=== PATIENT | male | born 1980 | race Caucasian/White ===

== ENCOUNTER 2017-06-06 14:58 | Inpatient (IN) | payer BC ==
[~2017-06-06] VITALS: Ht 182.9 cm; Wt 157.8 kg
[2017-06-06] MEDS ORDERED: ADDERALL 30 MG30 MG PO (15:19)
[2017-06-06] MEDS ORDERED: CLARITIN-D1 TAB.SR1 PO (15:20)
[2017-06-06] MEDS ORDERED: MUCINEX D1 TAB.SR . PO (15:21)
--- NOTE | 2017-06-06 15:25 | NUR ---
RECIEVED PT TO THE FLOOR AT THIS TIME VIA DIRECT ADMIT. ORIENTED PT TO ROOM AND FLOOR AT THIS TIME. WILL IMPLEMEMNT ORDERS OBTAINED. BED IN LOW POSITION AND CALL LIGHT WITHIN REACH. WILL CONTINUE TO MONITOR.
--- NOTE | 2017-06-06 16:20 | NUR ---
SITED IV AT THIS TIME TO PTS RIGHT HAND. IV FLUSIDS STARTED AND HEALTHCARE CONSULTING MANAGER INITIATED AT THIS TIME.PT TOLERATED WELL. BED IN LOW POSITION AND CALL LIGHT WITHIN REACH. WILL CONTINUE TO MONITOR.
[2017-06-06 16:22] LABS: BASOPHILS 0.2 % (0-2); EOSINOPHILS 1.2 % (0-7); HEMATOCRIT 43.7 % (42.0-54.0); HEMOGLOBIN 15.1 g/dL (13.5-17.5); IMMATURE GRANULOCYTES 0.4 % (0-5); LYMPHOCYTES 15.8 % (15-50); MCH 31.9 pg (26.0-34.0); MCHC 34.6 g/dL (31.0-37.0); MCV 92.4 fL (80.0-100.0); MEAN PLATELET VOLUME 8.8 fL (7.4-10.4); MONOCYTES 6.4 % (2-11); PLATELET COUNT 240 10x3/uL (130-400); RBC 4.73 10x6/uL (4.20-6.10); RDW 13.6 % (11.5-14.5); WBC 15.7 10x3/uL (4.8-10.8)
[2017-06-06 16:33] VITALS: BP 147/83
[2017-06-06 16:42] LABS: ALBUMIN 3.5 g/dL (3.4-5.0); ALKALINE PHOSPHATASE 120 U/L (46-116); ALT (SGPT) 44 U/L (10-68); BILIRUBIN - TOTAL 0.57 mg/dL (0.2-1.3); CALC OSMOLALITY 276 mosm/kg (275-300); CALCIUM 8.8 mg/dL (8.5-10.1); CARBON DIOXIDE 25.6 mmol/L (21.0-32.0); CHLORIDE - SERUM 103 mmol/L (98-107); CREATININE - SERUM 0.8 mg/dL (0.6-1.3); GLUCOSE 123 mg/dL (74-106); SODIUM 139 mmol/L (136-145); UREA NITROGEN 7 mg/dL (7-18); eGFR NON AFRICAN AMERICAN > 90 mL/min (90-120)
[2017-06-06 17:50] VITALS: BP 141/83; Ht 182.9 cm; Wt 157.8 kg
[2017-06-06 20:00] VITALS: BP 153/86
[2017-06-07] VITALS (8 sets, daily range): BP systolic 138–168; BP diastolic 89–97
--- NOTE | 2017-06-07 00:38 | NUR ---
PATIENT SLEEPING ON HIS BACK IN NO APPARENT DISTRESS. BEDRAILS UP x2, BED IN LOWEST LOCK POSITION, CALL LIGHT WITHIN REACH.
--- NOTE | 2017-06-07 01:20 | NUR ---
RESTING QUIETLY, EYES CLOSED. RESP EASY, UNLABORED. DENIES NEEDS. CONTINUE CONTRACTING EXECUTIVE'S PLAN OF CARE.
[2017-06-07 05:41] LABS: BASOPHILS 0.2 % (0-2); EOSINOPHILS 1.1 % (0-7); HEMATOCRIT 41.3 % (42.0-54.0); HEMOGLOBIN 14.2 g/dL (13.5-17.5); IMMATURE GRANULOCYTES 0.3 % (0-5); LYMPHOCYTES 12.3 % (15-50); MCH 31.6 pg (26.0-34.0); MCHC 34.4 g/dL (31.0-37.0); MONOCYTES 10.2 % (2-11); NEUTROPHILS 75.9 % (40-80); PLATELET COUNT 261 10x3/uL (130-400); RBC 4.49 10x6/uL (4.20-6.10); RDW 13.8 % (11.5-14.5); WBC 14.9 10x3/uL (4.8-10.8)
[2017-06-07 05:59] LABS: ALBUMIN 2.9 g/dL (3.4-5.0); ALKALINE PHOSPHATASE 102 U/L (46-116); ALT (SGPT) 34 U/L (10-68); BILIRUBIN - TOTAL 0.61 mg/dL (0.2-1.3); CALC OSMOLALITY 276 mosm/kg (275-300); CALCIUM 8.4 mg/dL (8.5-10.1); CARBON DIOXIDE 26.3 mmol/L (21.0-32.0); CHLORIDE - SERUM 104 mmol/L (98-107); CREATININE - SERUM 0.8 mg/dL (0.6-1.3); GLUCOSE 124 mg/dL (74-106); POTASSIUM - SERUM 3.9 mmol/L (3.5-5.1); PROTEIN - SERUM 6.7 g/dL (6.4-8.2); SODIUM 139 mmol/L (136-145); UREA NITROGEN 8 mg/dL (7-18); eGFR NON AFRICAN AMERICAN > 90 mL/min (90-120)
--- NOTE | 2017-06-07 06:14 | NUR ---
CONSENT FORMS SIGNED AND PLACED IN CHART
--- NOTE | 2017-06-07 07:30 | NUR ---
RECIEVED PT DURING WALKING ROUNDS, PT RESTING IN BED WITH COMPLAINTS OF CRAMPING PAIN IN THE ABDOMEN. ALUMINUM CAN COLLECTOR IN USE. ASSESSMENT DONE PER FLOWSHEET. BED IN LOW POSITION AND CALL LIGHT WITHIN REACH. WILL CONTINUE TO MONITOR.
--- NOTE | 2017-06-07 22:30 | NUR ---
PT IS RESTING QUIET IN BED WITH FAMILY AT THE BEDSIDE. HE HAS A MEAGHAN DRAIN IN THE MIDDLE OF HIS ABD WITH A DRESSING. THE BED IS LOW, RAILS UP X'S 2 WITH CALL LIGHT AT HAND.
[2017-06-08 04:00] VITALS: BP 154/103
[2017-06-08 05:49] LABS: BASOPHILS 0.1 % (0-2); EOSINOPHILS 0.1 % (0-7); HEMATOCRIT 41.7 % (42.0-54.0); HEMOGLOBIN 14.2 g/dL (13.5-17.5); IMMATURE GRANULOCYTES 0.4 % (0-5); LYMPHOCYTES 6.7 % (15-50); MCH 31.6 pg (26.0-34.0); MCHC 34.1 g/dL (31.0-37.0); MCV 92.7 fL (80.0-100.0); MEAN PLATELET VOLUME 9.1 fL (7.4-10.4); MONOCYTES 7.4 % (2-11); NEUTROPHILS 85.3 % (40-80); PLATELET COUNT 262 10x3/uL (130-400); RDW 13.8 % (11.5-14.5)
[2017-06-08 05:54] LABS: WBC 18.9 10x3/uL (4.8-10.8)
[2017-06-08 06:15] LABS: ALBUMIN 2.9 g/dL (3.4-5.0); ALKALINE PHOSPHATASE 104 U/L (46-116); ALT (SGPT) 28 U/L (10-68); BILIRUBIN - TOTAL 0.73 mg/dL (0.2-1.3); CALC OSMOLALITY 278 mosm/kg (275-300); CALCIUM 8.4 mg/dL (8.5-10.1); CHLORIDE - SERUM 103 mmol/L (98-107); CREATININE - SERUM 0.9 mg/dL (0.6-1.3); GLUCOSE 169 mg/dL (74-106); POTASSIUM - SERUM 4.4 mmol/L (3.5-5.1); PROTEIN - SERUM 7.2 g/dL (6.4-8.2); SODIUM 138 mmol/L (136-145); UREA NITROGEN 9 mg/dL (7-18); eGFR NON AFRICAN AMERICAN > 90 mL/min (90-120)
--- NOTE | 2017-06-08 07:15 | NUR ---
REPORT RECEIVED FROM TEAM PHYSICIAN NURSE. AMBULATING IN HALLWAY ADLIB. TOLERATING.
[2017-06-08 08:23] VITALS: BP 147/82
--- NOTE | 2017-06-08 08:28 | NUR ---
ASSESSMENT COMPLETED. AM MEDS ADMINISTERED. CARE PLAN REVIEWED. PASSWORD OBTAINED AND PUT IN COMPUTER. REFUSES SCDs. URINAL GIVEN TO PATIENT TO MONITOR URINE OUTPUT. EATING REGULAR BREAKFAST TRAY THAT WAS ORDERED. HAS AMBULATED IN HALLWAYS OVER 2000 FEET. CALL LIGHT IN REACH. WILL CONTINUE WITH PLAN OF CARE.
--- NOTE | 2017-06-08 10:20 | NUR ---
AMBULATING IN HALLWAY AGAIN. NO DISTRESS NOTED AT THIS TIME. CALL LIGHT IN REACH.
[2017-06-08 12:01] VITALS: BP 132/76
--- NOTE | 2017-06-08 12:08 | NUR ---
ADDERALL 30 MG PO PER ORDER. CALL LIGHT IN REACH.
--- NOTE | 2017-06-08 14:20 | NUR ---
CARLOS ALBERTO TO MEAGHAN DRAIN CHANGED D/T SATURATION. DR. STONE IN ROOM TO SEE PATIENT AT THIS TIME.
--- NOTE | 2017-06-08 15:48 | NUR ---
LOVENOX SUBQ TO ABDOMEN. MERREM IVPB. AMBULATING IN HALLWAY.
--- NOTE | 2017-06-08 17:45 | NUR ---
AMBULATES IN HALLWAY AD MITCH. DENIES ANY NEEDS AT PRESENT.
--- NOTE | 2017-06-08 18:09 | NUR ---
NO CHANGES IN INITIAL ASSESSMENT. STILL REFUSES SCDs. CALL LIGHT IN REACH. WILL CONTINUE WITH PLAN OF CARE.
[2017-06-08] MEDS ORDERED: HYDROCODON-ACE1 EAC7 PO (18:57)
[2017-06-08] MEDS ORDERED: COLACE100 MG PO (18:58)
--- NOTE | 2017-06-08 19:20 | NUR ---
AMBULATING IN HALLWAY. RETURNED TO ROOM FOR ASSESSMENTS. IV IN R HAND WITH NS INFUSING 75ML/HR. DENIES PAIN. HAS STATION CASHIER WITH DILAUDID FOR PAIN CONTROL.
[2017-06-08 20:00] VITALS: BP 142/81
--- NOTE | 2017-06-08 21:35 | NUR ---
AMBULATING IN ROOM. REQUESTED BATH SET UP.
--- NOTE | 2017-06-09 01:19 | NUR ---
RESTING QUIETLY WITH EYES CLOSED. RR EVEN U/L. NO S/S OF DISCOMFORT. CALL LIGHT IN REACH.
[2017-06-09 04:00] VITALS: BP 153/93
[2017-06-09 05:21] LABS: BASOPHILS 0.1 % (0-2); EOSINOPHILS 1.2 % (0-7); HEMATOCRIT 40.1 % (42.0-54.0); HEMOGLOBIN 13.6 g/dL (13.5-17.5); IMMATURE GRANULOCYTES 0.5 % (0-5); LYMPHOCYTES 19.8 % (15-50); MCH 31.2 pg (26.0-34.0); MCHC 33.9 g/dL (31.0-37.0); MEAN PLATELET VOLUME 9.2 fL (7.4-10.4); MONOCYTES 9.1 % (2-11); NEUTROPHILS 69.3 % (40-80); PLATELET COUNT 280 10x3/uL (130-400); RBC 4.36 10x6/uL (4.20-6.10); RDW 13.7 % (11.5-14.5)
[2017-06-09 05:24] LABS: WBC 13.7 10x3/uL (4.8-10.8)
[2017-06-09 05:49] LABS: ALBUMIN 2.8 g/dL (3.4-5.0); ALKALINE PHOSPHATASE 115 U/L (46-116); ALT (SGPT) 32 U/L (10-68); CALC OSMOLALITY 274 mosm/kg (275-300); CALCIUM 8.4 mg/dL (8.5-10.1); CARBON DIOXIDE 26.1 mmol/L (21.0-32.0); CHLORIDE - SERUM 102 mmol/L (98-107); CREATININE - SERUM 0.8 mg/dL (0.6-1.3); GLUCOSE 126 mg/dL (74-106); SODIUM 137 mmol/L (136-145); UREA NITROGEN 11 mg/dL (7-18); eGFR NON AFRICAN AMERICAN > 90 mL/min (90-120)
--- NOTE | 2017-06-09 06:35 | NUR ---
AMBULATING IN ROOM. ADMIN SCHED MEDS AND MEROPENEM IV. C/O NO BM, BUT IS PASSING FLATULENCE. REQUESTED COFFEE.
--- NOTE | 2017-06-09 07:20 | NUR ---
ASSESSMENT COMPLETE. IV TO R HAND PATENT. NS INFUSING AT 75 CC/HR VIA PUMP. WASTEWATER TREATMENT SUPERVISOR DILAUDID 0.2-10-4 IN USE FOR PAIN CONTROL. MEAGHAN DRAIN TO R ABDOMEN. AMBULATES IN HALLWAY FREQUENTLY.
[2017-06-09 08:24] VITALS: BP 137/80
--- NOTE | 2017-06-09 09:16 | NUR ---
PROTONIX IVP. IV THEN DC'D WITH TIP INTACT. MEAGHAN DRAIN DC'D WITH TIP INTACT.
--- NOTE | 2017-06-09 09:16 | NUR ---
DISCHARGE TEACHING GIVEN TO PATIENT. SCRIPTS FOR COLACE AND NORCO GIVEN TO PATIENT. IV REMOVED. CATHETER TIP INTACT. MEAGHAN DRAIN REMOVED. CATHETER TIP INTACT. AWAITING RIDE HOME.
--- NOTE | 2017-06-09 09:40 | NUR ---
DC'D HOME WITH FAMILY. ESCORTED TO VEHICLE WITH BELONGINGS AND SCRIPTS.
== END 2017-06-09 09:40 | disposition home or self-care (01) | DRG 340 ==
LOC: D.MS 14:58
PROVIDERS: Surgery; ADMIT Emergency Medicine
PROC: 0DTJ4ZZ Resection of Appendix, Percutaneous Endoscopic Approach (ICD-10-PCS; principal; 2017-06-07 12:00)
DX: K35.3 Acute appendicitis with localized peritonitis (principal); F17.200 Nicotine dependence, unspecified, uncomplicated

== ENCOUNTER 2017-11-19 09:45 | Day surgery (SDC) | payer BC ==
[~2017-11-19] VITALS: Ht 182.9 cm; Wt 156.5 kg
[~2017-11-19 09:45] MED LIST: ADDERALL 30 MG30 MG PO; ADIPEX-P37.5 M1 PO; CLARITIN-D1 TAB.SR1 PO; COLACE100 MG PO; HYDROCODON-ACE1 EAC7 PO; IOPHEN-C NR LI473 ML PO; MUCINEX D1 TAB.SR . PO
[2017-11-19 12:34] VITALS: BP 137/70; Ht 182.9 cm; Wt 156.5 kg
--- NOTE | 2017-11-19 19:10 | NUR ---
INSTRUCTIONS GIVEN FOR SPLINTING TO COUGH. PATIENT STATES COUGHING IS A PROBLEM AND DOESN'T WANT TO COUGH BECAUSE OF PAIN, INSTRUCTED IN IMPORTANCE OF COUGHING AND DEEP BREATHING AND HOW TO USE A PILLOW TO SPLINT ABDOMEN AND COUGH AND DEEP BREATHE PERIODICALLY, STATES UNDERSTANDING. DC INSTRUCTIONS REVIEWED WITH PATIENT AND SPOUSE. PATIENT DISCHARGED HOME VIA WHEELCHAIR TO PRIVATE VEHICLE WITH SPOUSE
--- NOTE | 2017-11-21 13:27 | OP ---
PATIENT NAME: SONI RAMIREZ MEDICAL RECORD: [id number] :82 LOCATION:D.OPS ADMISSION DATE: SURGEON: AYDEN STONE MD DATE OF OPERATION: 11/19/2017 PREOPERATIVE DIAGNOSES: 1. Symptomatic incisional ventral hernia. 2. Subcutaneous foreign body of the forehead, longstanding. POSTOPERATIVE DIAGNOSES: 1. Symptomatic incarcerated ventral hernia. 2. Incarcerated umbilical hernia. 3. Subcutaneous foreign body of the forehead, longstanding. PROCEDURE: 1. Laparoscopic incisional and umbilical hernia repairs with 7 x [address] mesh. 2. Excision of foreign body of the mid forehead. Dimensions of the excision, including margins, measured 3.1 cm x 1.8 cm. It included skin and subcutaneous tissue around the foreign body. This was an intermediate closure. SURGEON: Ayden Stone MD OUTDOOR FITNESS TRAINER: None. BLOOD LOSS: Minimal. DESCRIPTION OF PROCEDURE: The patient was carried to the operating room electively on 11/19/2017. General anesthesia was induced by the anesthesia staff. The abdomen was sterilely prepped and draped. A skin incision was accomplished in the left upper quadrant. A Veress needle was inserted through the skin incision into the peritoneal cavity. CO2 insufflation was begun. Once a sufficient pneumoperitoneum had been achieved, a 5-mm trocar was inserted in the left lower quadrant. Two 5-mm trocars were inserted in the right side of the abdomen. During insertion of the Veress needle and all trocars, there appeared to have been no injury to the bowels, any intraperitoneal structures, or retroperitoneal structures. There was incarcerated omentum within the incisional hernia defect. I took down the falciform ligament with the Harmonic scalpel as well as the anterior portion of the triangular ligament of the liver. I then excised some preperitoneal fat from the anterior abdomen. A prevesicular flap was created with the Harmonic scalpel. Intravenous methylene blue was given. There was no evidence of spillage of methylene blue and therefore, no evidence of a bladder injury. I reduced incarcerated preperitoneal fat from the umbilical hernia. Some of the fat was placed within a bag retrieval device and was withdrawn through the left lower quadrant trocar site. I then soaked a 7 x [address] mesh with the Echo positioning device. This was rolled up and advanced down through the left upper quadrant trocar site. I then unrolled the mesh. A small skin incision was accomplished between the 2 hernia defects. I advanced a laparoscopic suture passer. I grabbed the OPERATIVE REPORT [id number] SONI RAMIREZ tail of the mesh and hold it in place. I then cut the tail and placed it within the inflation device and inflated the mesh. I oriented it in the proper orientation with the long axis in the cephalad caudad dimension. I used the Optifix device to tack the mesh to the overlying abdominal wall. This kept the mesh in place and the final herniorrhaphy was accomplished with circumferential tacking with the SorbaFix Tacker. The 12-mm trocar site was closed with a Dmitriy-Kandice suture closure device and 0 Vicryl sutures. The skin incisions were closed with interrupted 4-0 Vicryl. The skin incision between the 2 hernia defects was closed with a single 4-0 Vicryl Rapide suture. Benzoin and Steri-Strips were applied. Attention was then turned to the forehead. This was sterilely prepped and draped. Through the use of double curvilinear incisions, I excised the skin and subcutaneous tissue around the foreign body. Subcutaneous flaps were created sharply. Meticulous hemostasis was achieved with electrocautery. The subdermis was approximated with a 4-0 Vicryl suture. The skin was approximated with a running intracuticular 4-0 Vicryl. Dermabond was then applied and then a Steri-Strip. The patient was then extubated and conveyed to post-anesthesia care unit where he was in stable condition. I will see him in the office in 2-3 weeks. TRANSINT:[id number] Voice Confirmation ID: [id number] DOCUMENT ID: [id number] AYDEN STONE MD at 1327 CC: [id number] DICTATION DATE: 11/19/17 1639 LUNCH COUNTER MANAGER: 11/19/17 1755 [facility] 11/19/17 [id number] [place] [address]
== END 2017-11-19 19:10 | disposition home or self-care (01) ==
LOC: D.OPS 09:45 → D.PAN 11:15 → D.OPS 12:00 → D.PAN 12:00 → D.OPS 19:10
DX: K43.0 Incisional hernia with obstruction, without gangrene (principal); K42.0 Umbilical hernia with obstruction, without gangrene; C44.319 Basal cell carcinoma of skin of other parts of face; L57.8 Other skin changes due to chronic exposure to nonionizing radiation; Z01.812 Encounter for preprocedural laboratory examination